=== PATIENT | male | born 1995 | race Hispanic/Latino ===

== ENCOUNTER 2018-05-02 12:31 | Emergency (ER) | payer SELFPAY ==
[2018-05-02] MEDS ORDERED: ORPHENADRINE CITRATE 30 MG/ML ML ONE (13:06)
[2018-05-02] MEDS ORDERED: KETOROLAC TROMETHAMINE 30MG/ML ONE (13:06)
== END 2018-05-02 13:35 | disposition home or self-care (01) ==
LOC: EDH 12:31
DX: M54.5 Low back pain (principal); M62.830 Muscle spasm of back
CPT/HCPCS: 96372 ×2; 99283; J1885; J2360

== ENCOUNTER 2019-04-25 13:17 | Emergency (ER) | payer BC | END 2019-04-25 15:24 | disposition left against medical advice (07) | LOC: EDH 13:17 | DX: R51 Headache (principal); Z53.21 Procedure and treatment not carried out due to patient leaving prior to being seen by health care provider; Z72.0 Tobacco use ==